=== PATIENT | female | born 1955 | race Caucasian/White ===

== ENCOUNTER 2016-03-27 12:31 | Outpatient (CLI) | payer BC | END 2016-03-27 12:32 | disposition home or self-care (01) | DX: Z12.2 Encounter for screening for malignant neoplasm of respiratory organs (principal); Z87.891 Personal history of nicotine dependence; J43.9 Emphysema, unspecified ==

== ENCOUNTER 2018-01-08 11:09 | Outpatient (CLI) | payer OTHER ==
--- NOTE | 2018-01-09 08:38 | Mammography Report ---
Reason: ANNUAL SCREENING Procedure Date: 01/08/2018 Accession Number: [id number] / [id number] Procedure: MADISYN - Screening Mammo w/Chandraaknt CPT Code: FULL RESULT: EXAM: Screening Mammo w/Chandrakant DATE: 01/08/2018 11:48 AM CLINICAL HISTORY: Routine screening. No personal or family history of breast cancer. TECHNIQUE: Bilateral CC and MLO views were obtained. COMPARISON: 01/07/2017, 12/26/2015. FINDINGS: The breasts demonstrate scattered fibroglandular densities bilaterally. There are no suspicious masses, calcifications or areas of distortion. IMPRESSION: Negative examination RECOMMENDATION: Routine annual screening unless otherwise clinically indicated. BI-RADS CATEGORY 1: Negative STANDARD QUALIFYING STATEMENTS: 1. This examination was not reviewed with the aid of Computer-Aided Detection (CAD). 2. A negative or benign imaging report should not preclude biopsy if clinically suspicious findings are present. 3. Dense breasts may obscure an underlying neoplasm. 4. This examination was reviewed with the aid of 3D breast imaging (tomosynthesis).
== END 2018-01-08 11:10 | disposition home or self-care (01) ==
LOC: DI 11:09
DX: Z12.31 Encounter for screening mammogram for malignant neoplasm of breast (principal)
CPT/HCPCS: 77063; 77067

== ENCOUNTER 2018-03-16 12:28 | Outpatient (CLI) | payer OTHER ==
--- NOTE | 2018-03-17 01:29 | XRAY Report ---
Reason: KNEE PAIN,LEFT Procedure Date: 03/16/2018 Accession Number: [id number] / [id number] Procedure: XR - Knee 3 View LT CPT Code: FULL RESULT: EXAM: LEFT KNEE RADIOGRAPHY EXAM DATE: 03/16/2018 01:05 PM. CLINICAL HISTORY: KNEE PAIN,LEFT. COMPARISON: None. TECHNIQUE: 3 views. FINDINGS: Bones: Normal. No fractures or bone lesions. Joints: Mild osteoarthritis. Small effusion. Soft Tissues: Normal. No soft tissue swelling. IMPRESSION: Mild osteoarthritis, with a small joint effusion. No evidence of acute fracture. RADIA
== END 2018-03-16 12:29 | disposition home or self-care (01) ==
LOC: DI 12:28
PROVIDERS: ATTEND Family Medicine
DX: M17.12 Unilateral primary osteoarthritis, left knee (principal)

== ENCOUNTER 2018-07-31 18:15 | Emergency (ER) | payer OTHER ==
--- NOTE | 2018-07-31 18:53 | ED Physician Documentation ---
PD HPI ABD PAIN - Stated complaint Stated Complaint: ABD PX - Chief complaint Chief Complaint: Abd Pain - History obtained from History obtained from: Patient - History of Present Illness Timing - onset: Yesterday Timing - duration: Days (1) Timing - details: Gradual onset Pain level now: 8 Quality: Other ("Kicked" in the stomach) Location: Periumbilical Associated symptoms: Nausea. No: Fever, Vomiting, Hematemesis, Diarrhea, Dysuria, Hematuria, Dizzy, Near syncope / syncope - Additional information Additional information: This is a 62-year-old woman who presents with her complaints that last night she had a gradual onset of abdominal pain feels like she got "kicked". She took some Tums without relief of her symptoms. She had some nausea but no vomiting or diarrhea she never had anything like this before. She says she was admitted to [facility] about 4 years ago was diagnosed with ischemic colitis but did not undergo any surgery and does have a history of diverticulitis about 7 years ago. She has not seen any blood in the stool has not been dark or tarry. She said no palpitations or felt lightheaded. No fever. She has been on a weight loss plan recently eating a lot of fruits and vegetables just a small amount of lean meats and cheese. Patient usually drinks alcohol about every other day but quit approximately a week ago. She is a daily marijuana user. She has not been drinking much today and has not been urinating much.She tells me she has had multiple colonoscopies in the past. Review of Systems Constitutional: denies: Fever, Chills Nose: denies: Congestion Throat: denies: Sore throat Cardiac: denies: Chest pain / pressure, Palpitations Respiratory: denies: Dyspnea, Cough GI: reports: Abdominal Pain, Nausea. denies: Vomiting, Diarrhea, Hematemesis, Bloody / black stool : denies: Dysuria, Frequency Skin: denies: Rash Neurologic: denies: Syncope, LOC PD PAST MEDICAL HISTORY - Past Medical History Past Medical History: Yes Cardiovascular: None Respiratory: None Endocrine/Autoimmune: None GI: None : None HEENT: None Psych: None Musculoskeletal: Osteoarthritis, Gout, Chronic back pain Derm: None - Past Surgical History General: Colonoscopy - Present Medications Home Medications: Ambulatory Orders Medication Instructions Recorded Confirmed Amox/Clav 875/125 [Augmentin] 2 each PO Q12H #40 tablet 07/31/18 Hydrocodone/Acetaminophen 1 - 2 each PO Q6H PRN #14 tablet 07/31/18 [Hydrocodon-Acetaminophen 5-325] Multivitamin [Multiple Vitamins] 07/31/18 - Allergies Allergies/Adverse Reactions: Allergies Allergy/AdvReac Type Severity Reaction Status Date / Time No Known Drug Allergies Allergy Verified 07/31/18 18:23 - Social History Does the pt smoke?: Yes Smoking Status: Current every day smoker Does the pt drink ETOH?: Yes Does the pt have substance abuse?: No - Immunizations Immunizations are current?: Yes PD ED PE NORMAL - Vitals Vital signs reviewed: Yes - General General: Alert and oriented X 3, No acute distress, Well developed/nourished - HEENT HEENT: Atraumatic, PERRL, EOMI, Moist mucous membranes, Pharynx benign - Neck Neck: No adenopathy - Cardiac Cardiac: RRR, No murmur - Respiratory Respiratory: No respiratory distress, Clear bilaterally - Abdomen Abdomen: Normal bowel sounds, Soft, Other (Diffuse abdominal tenderness with some mild guarding) - Back Back: No CVA TTP - Derm Derm: Normal color, Warm and dry, No rash - Extremities Extremities: No edema - Neuro Neuro: Alert and oriented X 3, No motor deficit, No sensory deficit, Normal speech - Psych Psych: Normal mood, Normal affect Results - Vitals Vitals: Vital Signs - 24 hr 07/31/18 07/31/18 07/31/18 18:20 19:47 20:16 Temperature 37.3 C 37.1 C Heart Rate 89 78 Respiratory 16 16 Rate Blood Pressure 137/73 H 130/75 O2 Saturation 97 97 07/31/18 07/31/18 21:49 23:18 Temperature 37.1 C Heart Rate 78 71 Respiratory 16 21 Rate Blood Pressure 122/73 114/68 O2 Saturation 100 96 Oxygen O2 Source Room air - EKG (time done) 1910 Rate: Rate (enter#) Rhythm: NSR Intervals: Normal NV QRS: Normal Ischemia: Normal ST segments Compare to prior EKG: Old EKG unavailable - Labs Labs: Laboratory Tests 07/31/18 07/31/18 07/31/18 18:30 19:20 19:20 WBC 14.1 H RBC 4.56 Hgb 14.5 Hct 42.4 MCV 93.0 MCH 31.9 H MCHC 34.3 RDW 13.4 Plt Count 255 MPV 8.5 Neut # (Auto) 10.4 H Lymph # (Auto) 2.4 Benzie # (Auto) 1.2 H Eos # (Auto) 0.0 Baso # (Auto) 0.0 Absolute Nucleated RBC 0.01 Nucleated RBC % 0.1 PT 11.7 INR 1.0 Sodium Potassium Chloride Carbon Dioxide Anion Gap BUN Creatinine Estimated GFR (MDRD) Glucose Lactic Acid Calcium Total Bilirubin AST ALT Alkaline Phosphatase Troponin I Total Protein Albumin Globulin Albumin/Globulin Ratio Lipase Urine Color YELLOW Urine Clarity CLEAR Urine pH 7.5 Ur Specific [place] <=1.005 Urine Protein NEGATIVE Urine Glucose (UA) NEGATIVE Urine Ketones NEGATIVE Urine Occult Blood SMALL H Urine Nitrite NEGATIVE Urine Bilirubin NEGATIVE Urine Urobilinogen 0.2 (NORMAL) Ur Leukocyte Esterase NEGATIVE Urine RBC 6-10 H Urine WBC 0-3 Ur Squamous Epith Cells RARE Squamous Urine Bacteria None Seen Ur Microscopic Review INDICATED Urine Culture Comments NOT INDICATED Ethyl Alcohol 07/31/18 07/31/18 07/31/18 19:20 19:20 19:20 WBC RBC Hgb Hct MCV MCH MCHC RDW Plt Count MPV Neut # (Auto) Lymph # (Auto) Benzie # (Auto) Eos # (Auto) Baso # (Auto) Absolute Nucleated RBC Nucleated RBC % PT INR Sodium 137 Potassium 3.6 Chloride 104 Carbon Dioxide 22 Anion Gap 11.0 BUN 10 Creatinine 0.8 Estimated GFR (MDRD) 73 L Glucose 106 H Lactic Acid 0.8 Calcium 9.1 Total Bilirubin 0.7 AST 19 ALT 20 Alkaline Phosphatase 56 Troponin I < 0.04 Total Protein 7.3 Albumin 4.1 Globulin 3.2 Albumin/Globulin Ratio 1.3 Lipase 32 Urine Color Urine Clarity Urine pH Ur Specific [place] Urine Protein Urine Glucose (UA) Urine Ketones Urine Occult Blood Urine Nitrite Urine Bilirubin Urine Urobilinogen Ur Leukocyte Esterase Urine RBC Urine WBC Ur Squamous Epith Cells Urine Bacteria Ur Microscopic Review Urine Culture Comments Ethyl Alcohol < 5.0 - Rads (name of study) CT scan abd Radiology: Prelim report reviewed, See rad report (Consistent with diverticulitis) PD MEDICAL DECISION MAKING - ED course Complexity details: reviewed results, re-evaluated patient, d/w patient, d/w family ED course: Is a 62-year-old woman with abdominal pain and history of diverticulitis. She has an elevated white blood cell count and diverticulitis noted on her CT scan. She was treated with Zosyn IV. She received IV pain medications. She is feeling much better. She is discharged home on Augmentin 875 2 tablets twice daily for 10 days as well as prescription for some hydrocodone and instructed to use ibuprofen [id number]. Datto diet for the next several days. Follow- up if she is not improving and recheck with her primary care provider. Departure - Departure Disposition: 01 Home, Self Care Clinical Impression: Diverticulitis Condition: Good Instructions: ED Diverticulitis Follow-Up: Tyrese Padilla DO [Primary Care Provider] - Prescriptions: Amox/Clav 875/125 [Augmentin] 2 each PO Q12H #40 tablet Hydrocodone/Acetaminophen [Hydrocodon-Acetaminophen 5-325] 1 - 2 each PO Q6H PRN #14 tablet PRN Reason: pain Comments: Take the Augmentin 2 tabs twice a day for 10 days. I would take probiotics while you are on the antibiotic and for 2 weeks after. Take ibuprofen 3 to 4 tablets every 8 hours with food for the next 2 to 3 days. I have provided a prescription for a few hydrocodone tablets if needed for additional pain control but do not drive or operate machinery if you are taking that medication. Eat a bland diet for the next 24 to 48 hours and follow-up with your primary care provider for reevaluation next week to ensure that you are improving. If your symptoms are worsening with increasing pain, you are vomiting and cannot keep anything down to develop a fever that is not resolved with ibuprofen or hy drocodone or Tylenol you should return for reevaluation. Discharge Date/Time: 07/31/18 23:27
[2018-07-31] MEDS ORDERED: SODIUM CHLORIDE 0.9% 1,000 ML IV ONE (19:06)
[2018-07-31] MEDS ORDERED: FAMOTIDINE 20 MG/2 ML VIAL IVP STA (19:06)
[2018-07-31] MEDS ORDERED: ONDANSETRON 4 MG/2 ML VIAL IVP STA (19:07)
[2018-07-31] MEDS ORDERED: ONDANSETRON 4 MG/2 ML VIAL ONE (19:17)
[2018-07-31] MEDS ORDERED: IOVERSOL 320 100 ML VIAL IVP ONE ×2 (19:19→20:08)
[2018-07-31 19:29] LABS: BASOPHILS % (AUTO) 0.3 %; EOSINOPHILS % (AUTO) 0.2 %; HGB - HEMOGLOBIN 14.5 g/dL (12.0-16.0); LYMPHOCYTES # (AUTO) 2.4 10^3/uL (1.5-3.5); LYMPHOCYTES % (AUTO) 17.2 %; MEAN CORPUSCULAR HEMOGLOBIN 31.9 pg (27.0-31.0); MEAN CORPUSCULAR HGB CONC 34.3 g/dL (32.0-36.0); MEAN PLATELET VOLUME 8.5 fL (7.9-10.8); MONOCYTES # (AUTO) 1.2 10^3/uL (0.0-1.0); MONOCYTES % (AUTO) 8.8 %; NEUTROPHILS # (AUTO) 10.4 10^3/uL (1.5-6.6); NEUTROPHILS % (AUTO) 73.5 %; PLT - PLATELET COUNT 255 10^3/uL (130-450); RED BLOOD COUNT 4.56 10^6/uL (4.20-5.40); RED CELL DISTRIBUTION WIDTH 13.4 % (12.0-15.0); WHITE BLOOD COUNT 14.1 x10^3/uL (4.8-10.8)
[2018-07-31 19:29] LABS: BILIRUBIN,URINE NEGATIVE (NEGATIVE); GLUCOSE, URINE (UA) NEGATIVE (NEGATIVE); KETONES,URINE (UA) NEGATIVE (NEGATIVE); LEUKOCYTE ESTERASE, URINE NEGATIVE (NEGATIVE); NITRITE,URINE NEGATIVE (NEGATIVE); OCCULT BLOOD,URINE SMALL (NEGATIVE); PH,URINE 7.5 PH (5.0-7.5); PROTEIN,URINE NEGATIVE (NEGATIVE); UROBILINOGEN,URINE 0.2 (NORMAL) E.U./dL (NORMAL)
[2018-07-31 19:35] LABS: PT - PROTHROMBIN TIME 11.7 secs (9.9-12.6)
[2018-07-31 19:40] LABS: ALBUMIN 4.1 g/dL (3.2-5.5); ALBUMIN/GLOBULIN RATIO 1.3 (1.0-2.2); ALKALINE PHOSPHATASE 56 IU/L (42-121); ALT ALANINE AMINOTRANSFERASE 20 IU/L (10-60); AST ASPARTATE AMINOTRANSFERASE 19 IU/L (10-42); BILIRUBIN,TOTAL 0.7 mg/dL (0.2-1.0); BUN - BLOOD UREA NITROGEN 10 mg/dL (6-20); CALCIUM 9.1 mg/dL (8.5-10.3); CARBON DIOXIDE - CO2 22 mmol/L (21-32); CHLORIDE 104 mmol/L (101-111); CREATININE 0.8 mg/dL (0.4-1.0); GFR - MDRD 73 (>89); GLUCOSE 106 mg/dL (70-100); LIPASE 32 U/L (22-51); SODIUM 137 mmol/L (135-145); TOTAL PROTEIN 7.3 g/dL (6.7-8.2)
[2018-07-31 19:40] LABS: CLARITY,URINE CLEAR (CLEAR)
[2018-07-31 19:47] LABS: BACTERIA,URINE None Seen /HPF (None Seen); SQUAMOUS EPITHELIAL CELL,UR RARE Squamous (<= Few)
--- NOTE | 2018-07-31 20:27 | CT Report ---
Reason: abd pain; h/o ischemic colitis and diverticulits Procedure Date: 07/31/2018 Accession Number: [id number] / [id number] Procedure: CT - Abdomen/Pelvis W CPT Code: FULL RESULT: EXAM: CT ABDOMEN AND PELVIS EXAM DATE: 07/31/2018 07:00 PM. CLINICAL HISTORY: Abdominal pain COMPARISONS: ABDOMEN/PELVIS W/ 04/14/2015 6:08 PM. TECHNIQUE: Routine helical CT imaging was performed through the abdomen and pelvis. IV contrast: 100 cc Optiray 320. Enteric contrast: No. Reconstructions: Coronal and sagittal. In accordance with CT protocol optimization, one or more of the following dose reduction techniques were utilized for this exam: automated exposure control, adjustment of mA and/or KV based on patient size, or use of iterative reconstructive technique. FINDINGS: Lung Bases: Unremarkable. Liver: Normal. No masses. Gallbladder/Bile Ducts: Unremarkable. Spleen: Normal. Pancreas: Normal. Adrenal Glands: Normal. Kidneys: Normal. No masses or hydronephrosis. Peritoneal Cavity/Bowel: Stomach and small bowel demonstrate no acute abnormalities. There is colonic diverticulosis. There is low left colon wall thickening with adjacent fat stranding. No evidence of intraperitoneal free air. No drainable pericolonic abscess. The appendix is well visualized and normal. No enlarged mesenteric or retroperitoneal lymph nodes. Pelvic Organs: Fibroid uterus. The urinary bladder is within normal limits. No significant adnexal abnormality is are seen. Vasculature: No acute vascular abnormalities. Bones: There is multilevel degenerative disease. Other: None. IMPRESSION: 1. There is moderate low left colon diverticulitis. There is no evidence of perforation or pericolonic abscess. 2. Fibroid uterus. RADIA
[2018-07-31] MEDS ORDERED: PIPERACILLIN/TAZOBACTAM 3.375 GM in SODIUM CHLORIDE 0.9% MINIBAG 100 ML IV STA (21:49)
[2018-07-31] MEDS ORDERED: KETOROLAC 30 MG/ML VIAL IVP STA (21:50)
[2018-07-31 23:19] VITALS: BP 114/68
== END 2018-07-31 23:27 | disposition home or self-care (01) ==
LOC: ED 18:15
DX: K57.32 Diverticulitis of large intestine without perforation or abscess without bleeding (principal); D25.9 Leiomyoma of uterus, unspecified; F17.200 Nicotine dependence, unspecified, uncomplicated
CPT/HCPCS: 36415; 74177; 80053; 80320; 81001; 83605; 83690; 84484; 85025; 85610; 93005; 96361; 96365; 96375; 99284; Q9967; 81003; 87086

== ENCOUNTER 2018-10-19 06:56 | Outpatient (CLI) | payer OTHER ==
[2018-10-19 10:48] LABS: BASOPHILS % (AUTO) 0.5 %; EOSINOPHILS # (AUTO) 0.1 10^3/uL (0.0-0.7); EOSINOPHILS % (AUTO) 1.7 %; HGB - HEMOGLOBIN 14.7 g/dL (12.0-16.0); MEAN CORPUSCULAR HEMOGLOBIN 31.2 pg (27.0-31.0); MEAN CORPUSCULAR HGB CONC 32.6 g/dL (32.0-36.0); MEAN CORPUSCULAR VOLUME 95.8 fL (81.0-99.0); MEAN PLATELET VOLUME 11.1 fL (7.9-10.8); MONOCYTES # (AUTO) 0.7 10^3/uL (0.0-1.0); MONOCYTES % (AUTO) 8.9 %; NEUTROPHILS # (AUTO) 4.3 10^3/uL (1.5-6.6); NEUTROPHILS % (AUTO) 52.7 %; PLT - PLATELET COUNT 313 10^3/uL (130-450); RED BLOOD COUNT 4.71 10^6/uL (4.20-5.40); RED CELL DISTRIBUTION WIDTH 13.1 % (12.0-15.0); WHITE BLOOD COUNT 8.2 x10^3/uL (4.8-10.8)
[2018-10-19 11:21] LABS: ALBUMIN 4.3 g/dL (3.2-5.5); ALBUMIN/GLOBULIN RATIO 1.4 (1.0-2.2); ALKALINE PHOSPHATASE 57 IU/L (42-121); ALT ALANINE AMINOTRANSFERASE 18 IU/L (10-60); AST ASPARTATE AMINOTRANSFERASE 19 IU/L (10-42); BILIRUBIN,TOTAL 0.7 mg/dL (0.2-1.0); BUN - BLOOD UREA NITROGEN 11 mg/dL (6-20); CALCIUM 9.8 mg/dL (8.5-10.3); CARBON DIOXIDE - CO2 24 mmol/L (21-32); CHLORIDE 106 mmol/L (101-111); CHOL/HDL RATIO 3.6 (<4.4); CHOLESTEROL 190 mg/dL; CREATININE 0.8 mg/dL (0.4-1.0); GFR - MDRD 73 (>89); GLUCOSE 95 mg/dL (70-100); HDL CHOLESTEROL 53 mg/dL; LDL CHOLESTEROL,CALCULATED 121 mg/dL; LDL/HDL RATIO 2.3 (<4.4); SODIUM 141 mmol/L (135-145); TOTAL PROTEIN 7.3 g/dL (6.7-8.2); VLDL CHOLESTEROL 16 mg/dL
== END 2018-10-19 06:57 | disposition home or self-care (01) ==
LOC: LAB.S 06:56
PROVIDERS: ATTEND Family Medicine
DX: Z00.00 Encounter for general adult medical examination without abnormal findings (principal)
CPT/HCPCS: 36415; 80053; 80061; 83721; 84443; 85025

== ENCOUNTER 2018-12-04 12:50 | Outpatient (CLI) | payer OTHER ==
--- NOTE | 2018-12-04 14:33 | CT Report ---
Reason: NICOTINE ABUSE/DEPENDENCE Procedure Date: 12/04/2018 Accession Number: [id number] / [id number] Procedure: CT - Low Dose Lung Cancer Screen CPT Code: FULL RESULT: EXAM CT LUNG SCREEN EXAM DATE: 12/04/2018 01:31 PM. HISTORY: 63-year-old patient with [id number] smoking history. Currently smoking: No. Years since quittin. COMPARISON: CHEST SCREEN LOW-DOSE W/O 03/27/2016 1:24 PM. TECHNIQUE: CT examination of the entire thorax without contrast was performed using low-dose technique. Thin section coronal, axial, sagittal and MIP axial images were obtained. In accordance with CT protocol optimization, one or more of the following dose reduction techniques were utilized for this exam: automated exposure control, adjustment of mA and/or KV based on patient size, or use of iterative reconstructive technique. FINDINGS: Nodules: Right upper lobe: None. Right middle lobe: None. Right lower lobe: None. Left upper lobe: None. Left lower lobe: None. Emphysema: None. Pleura: Unremarkable. Aorta: Unremarkable. Mediastinum: Unremarkable. Coronary calcifications: None. Other pulmonary findings: None. Other extrapulmonary findings: There is an approximate 5 x 2 cm diameter homogeneous elliptical intramuscular lipoma in the posterior shoulder muscles of no clinical significance. IMPRESSION: Lung-RADS ASSESSMENT CATEGORY: 1 - Negative. Probability of malignancy: Less than 1%. RECOMMENDATION: Recommended follow up based on ACR Lung-RADS Version 1.1 Guidelines. Recommend annual low-dose CT screening. RADIA
== END 2018-12-04 12:51 | disposition home or self-care (01) ==
LOC: DI 12:50
PROVIDERS: ATTEND Family Medicine
DX: Z12.2 Encounter for screening for malignant neoplasm of respiratory organs (principal); Z87.891 Personal history of nicotine dependence

== ENCOUNTER 2019-01-22 12:53 | Outpatient (CLI) | payer OTHER ==
--- NOTE | 2019-01-25 12:33 | Mammography Report ---
Reason: SCREENING MAMMO Procedure Date: 01/22/2019 Accession Number: [id number] / [id number] Procedure: MGS - Screening Mammo Dig Bilat CPT Code: Final Report FULL RESULT: EXAM: Screening Mammo Dig Bilat DATE: 01/22/2019 1:09 PM CLINICAL HISTORY: The patient is an asymptomatic 63-year-old female. No personal nor family history of breast cancer. TECHNIQUE: (B) - Bilateral CC and MLO views were obtained. COMPARISON: 01/18/2018, 01/07/2017 and 12/26/2015 PARENCHYMAL PATTERN: (A) - The breasts demonstrate scattered fibroglandular densities bilaterally. FINDINGS: There are no suspicious masses, calcifications, or areas of distortion. IMPRESSION: Negative examination. BI-RADS category 1. RECOMMENDATION: (ANNUAL) - Recommend routine annual screening mammography. BI-RADS CATEGORY: STANDARD QUALIFYING STATEMENTS: 1. This examination was not reviewed with the aid of Computer-Aided Detection (CAD). 2. A negative or benign imaging report should not preclude biopsy if clinically suspicious findings are present. 3. Dense breasts may obscure an underlying neoplasm.
== END 2019-01-22 12:54 | disposition home or self-care (01) ==
LOC: DI.S 12:53
DX: Z12.31 Encounter for screening mammogram for malignant neoplasm of breast (principal)
CPT/HCPCS: 77067

== ENCOUNTER 2020-03-22 18:44 | Outpatient (CLI) | payer OTHER | END 2020-03-22 18:45 | disposition EMS.NT | LOC: EMS 18:44 | PROVIDERS: ATTEND Surgery | DX: R10.10 Upper abdominal pain, unspecified (principal) ==

== ENCOUNTER 2020-05-23 08:00 | Outpatient (CLI) | payer OTHER ==
[2020-05-23 12:04] LABS: BASOPHILS # (AUTO) 0.1 10^3/uL (0.0-0.1); BASOPHILS % (AUTO) 0.7 %; EOSINOPHILS # (AUTO) 0.1 10^3/uL (0.0-0.7); EOSINOPHILS % (AUTO) 1.4 %; HCT - HEMATOCRIT 43.7 % (37.0-47.0); HGB - HEMOGLOBIN 14.6 g/dL (12.0-16.0); LYMPHOCYTES # (AUTO) 2.6 10^3/uL (1.5-3.5); MEAN CORPUSCULAR HEMOGLOBIN 32.2 pg (27.0-31.0); MEAN CORPUSCULAR HGB CONC 33.4 g/dL (32.0-36.0); MEAN CORPUSCULAR VOLUME 96.5 fL (81.0-99.0); MEAN PLATELET VOLUME 10.7 fL (7.9-10.8); MONOCYTES # (AUTO) 0.7 10^3/uL (0.0-1.0); MONOCYTES % (AUTO) 10.5 %; NEUTROPHILS # (AUTO) 3.6 10^3/uL (1.5-6.6); NEUTROPHILS % (AUTO) 50.1 %; PLT - PLATELET COUNT 283 10^3/uL (130-450); RED BLOOD COUNT 4.53 10^6/uL (4.20-5.40); WHITE BLOOD COUNT 7.1 x10^3/uL (4.8-10.8)
[2020-05-23 12:34] LABS: ALBUMIN 4.6 g/dL (3.2-5.5); ALBUMIN/GLOBULIN RATIO 1.5 (1.0-2.2); ALKALINE PHOSPHATASE 59 IU/L (42-121); ALT ALANINE AMINOTRANSFERASE 15 IU/L (10-60); AST ASPARTATE AMINOTRANSFERASE 19 IU/L (10-42); BILIRUBIN,TOTAL 0.5 mg/dL (0.2-1.0); BUN - BLOOD UREA NITROGEN 12 mg/dL (6-20); CALCIUM 10.1 mg/dL (8.5-10.3); CARBON DIOXIDE - CO2 24 mmol/L (21-32); CHLORIDE 106 mmol/L (101-111); CHOLESTEROL 218 mg/dL; CREATININE 0.8 mg/dL (0.4-1.0); GFR - MDRD 72 (>89); GLUCOSE 95 mg/dL (70-100); HDL CHOLESTEROL 73 mg/dL; LDL CHOLESTEROL,CALCULATED 120 mg/dL; LDL/HDL RATIO 1.6 (<4.4); POTASSIUM 4.3 mmol/L (3.5-5.0); SODIUM 140 mmol/L (135-145); TOTAL PROTEIN 7.6 g/dL (6.7-8.2); TRIGLYCERIDES 127 mg/dL; VLDL CHOLESTEROL 25 mg/dL
[2020-05-23 12:35] LABS: THYROID STIMULATING HORMONE 1.37 uIU/mL (0.34-5.60)
== END 2020-05-23 23:59 | disposition home or self-care (01) ==
LOC: LAB.WCP 08:00
PROVIDERS: ATTEND Family Medicine
DX: R00.2 Palpitations (principal); I10 Essential (primary) hypertension
CPT/HCPCS: 36415; 80053; 80061; 83721; 83735; 84443; 85025

== ENCOUNTER 2020-06-27 07:49 | Outpatient (CLI) | payer OTHER ==
--- NOTE | 2020-06-27 10:05 | CT Report ---
PROCEDURE: Low Dose Lung Cancer Screen INDICATIONS: TOBACCO USE TECHNIQUE: Noncontrast low-dose 5 mm thick sections acquired from the pulmonary apices to the posterior costophr enic angles. 7 mm thick coronal and sagittal MIP reformats were then acquired. For radiation dose r eduction, the following was used: automated exposure control, adjustment of mA and/or kV according t o patient size. COMPARISON: None. FINDINGS: CHEST: Lungs: Diffuse peribronchial cuffing suggestive of nonspecific bronchitis and/or reactive airways dis ease. Scattered subsegmental scarring/atelectasis. No acute consolidation. Pleura: No pleural effusion or pneumothorax. Heart: Normal Lymph nodes: Normal Thyroid: Heterogeneous enlargement of the right lobe. Aorta: Normal Pulmonary arteries: Normal Esophagus: Normal Bones: Diffuse spondolytic changes and facet arthropathy. No compression fracture. Upper abdomen: Normal IMPRESSION: No suspicious pulmonary nodules. Lung RADS 1. Recommend follow-up screening lung CT in 12 months. Scattered subsegmental scarring/atelectasis. No acute consolidation. Ill-defined heterogeneous enlargement of the right thyroid lobe. This can be further assessed with de dicated ultrasound as clinically necessary. Reviewed by: Clif Hamilton MD on 06/27/2020 10:04 AM PDT Approved by: Clif Hamilton MD on 06/27/2020 10:04 AM PDT Station ID: [id number]
--- NOTE | 2020-06-27 12:47 | XRAY Report ---
PROCEDURE: Knee 4 View LT INDICATIONS: LEFT KNEE PAIN TECHNIQUE: 4 views of the left knee(s) were acquired. COMPARISON: Knee x-ray 03/16/2018 FINDINGS: Bones: No fractures or dislocations. No suspicious bony lesions. Moderate medial and patellofemora l compartment narrowing are present. Small periarticular osteophytes are present. No erosions. Overal l appearance is stable compared to prior exam. Soft tissues: Unremarkable joint effusion. No suspicious soft tissue calcifications. IMPRESSION: 1. Stable appearance of medial and patellofemoral osteoarthritic change. Reviewed by: Rachel Gurrola MD on 06/27/2020 11:46 AM RADHA Approved by: Rachel Gurrola MD on 06/27/2020 11:46 AM RADHA Station ID: [id number]
--- NOTE | 2020-06-27 12:49 | XRAY Report ---
PROCEDURE: Shoulder 2 View RT INDICATIONS: RIGHT SHOULDER PAIN TECHNIQUE: 2 views of the shoulder were acquired. COMPARISON: None. FINDINGS: Bones: No fractures or dislocations. No suspicious bony lesions. Visualized ribs appear intact. M oderate acromioclavicular degenerative narrowing. Soft tissues: No suspicious soft tissue calcifications. IMPRESSION: Moderate acromioclavicular degenerative narrowing. Reviewed by: Rachel Gurrola MD on 06/27/2020 11:47 AM RADHA Approved by: Rachel Gurrola MD on 06/27/2020 11:47 AM RADHA Station ID: [id number]
== END 2020-06-27 07:50 | disposition home or self-care (01) ==
LOC: DI 07:49
PROVIDERS: ATTEND Family Medicine
DX: Z12.2 Encounter for screening for malignant neoplasm of respiratory organs (principal); J98.11 Atelectasis; M17.12 Unilateral primary osteoarthritis, left knee; M19.011 Primary osteoarthritis, right shoulder; I49.3 Ventricular premature depolarization; I51.7 Cardiomegaly; I87.8 Other specified disorders of veins; F17.210 Nicotine dependence, cigarettes, uncomplicated
CPT/HCPCS: 93306

== ENCOUNTER 2020-11-19 12:16 | Outpatient (CLI) | payer MEDICARE ==
--- NOTE | 2020-11-20 10:20 | Mammography Report ---
BILATERAL DIGITAL SCREENING MAMMOGRAM 3D/2D: 11/19/2020 CLINICAL: Routine screening. Comparison is made to exams dated: 01/22/2019 mammogram, 01/08/2018 mammogram, 01/07/2017 mammogram, a nd 12/26/2015 mammogram - [facility]. There are scattered fibroglandular elements in both breasts. There is a possible developing 0.5 cm oval equal density asymmetry in the left breast posterior depth superior region seen on the mediolateral oblique view only. No other significant masses, calcifications, or other findings are seen in either breast. IMPRESSION: INCOMPLETE: NEEDS ADDITIONAL IMAGING EVALUATION The possible developing 0.5 cm oval equal density asymmetry in the left breast is indeterminate. Add itional views with possible ultrasound are recommended. This exam was interpreted at Station ID: [id number]. NOTE: For mammograms, a report in lay terms will be sent to the patient. Approximately 15% of breast malignancies will not be visualized mammographically. In the management of a palpable breast mass, a negative mammogram must not discourage biopsy of a clinically suspicious lesion. Electronically Signed By: Fransisco Abbott M.D. aty/:11/20/2020 08:54:18 ACR BI-RADS Category 0: Incomplete 3340F PARENCHYMAL PATTERN: (A) - The breast(s) demonstrate(s) scattered fibroglandular densities. BI-RADS CATEGORY: (0) - 0 Mammo and [place] [id number] Immediate follow-up LATERALITY: (L)
== END 2020-11-19 12:17 | disposition home or self-care (01) ==
LOC: DI.S 12:16
DX: Z12.31 Encounter for screening mammogram for malignant neoplasm of breast (principal); R92.8 Other abnormal and inconclusive findings on diagnostic imaging of breast

== ENCOUNTER 2020-11-20 14:41 | Outpatient (CLI) | payer MEDICARE ==
--- NOTE | 2020-11-20 16:35 | Ultrasound Report ---
PROCEDURE: Head or Neck Soft Tissue INDICATIONS: THYROID N0DULE TECHNIQUE: Real-time scanning was performed of the thyroid gland, with image documentation. COMPARISON: None FINDINGS: Right: Thyroid lobe measures 4.5 x 2.3 x 2.2 cm, and is homogeneous in echotexture. Left: Thyroid lobe measures 3.8 x 1.3 x 1.2 cm, and is homogenous in echotexture. Isthmus: 0.2 cm thick. Nodule number: One Location: Right superior/mid Size: 2.7 x 2.1 x 2 cm. Composition: Prominently solid Echogenicity: Hypoechoic Shape: wider than tall. Margins: Lobulated Echogenic foci: Macrocalcification Total points: 7 ACR TI-RADS category: TR 5, highly suspicious Subcentimeter thyroid nodule on the left measuring 0.4 cm. Not suspicious. IMPRESSION: Right superior/mid thyroid nodule measuring 2.7 cm. TR 5, highly suspicious. Recommend FNA. ACR TI-RADS definitions and recommendations: TI-RADS 1 (benign): 0 points. FNA not needed. TI-RADS 2 (not suspicious): 2 points. FNA not needed. TI-RADS 3 (mildly suspicious): 3 points. ? FNA if 2.5 cm or larger, follow up if 1.5 cm or larger (at 1, 3, and 5 years). TI-RADS 4 (moderately suspicious): 4-6 points. ? FNA if 1.5 cm or larger, follow up if 1 cm or larger (at 1, 2, 3, and 5 years). TI-RADS 5 (highly suspicious): 7 points or more. ? FNA if 1 cm or larger, follow up if 0.5 cm or larger (every year for 5 years). Reviewed by: Pacheco Hernandez MD on 11/20/2020 4:34 PM PDT Approved by: Pacheco Hernandez MD on 11/20/2020 4:34 PM PDT Station ID: [id number]
== END 2020-11-20 14:42 | disposition home or self-care (01) ==
LOC: DI 14:41
PROVIDERS: ATTEND Family Medicine
DX: E04.1 Nontoxic single thyroid nodule (principal)

== ENCOUNTER 2020-11-30 13:40 | Outpatient (CLI) | payer MEDICARE ==
[~2020-11-30 13:40] MED LIST: BUFFERED LIDOCAINE 10 ML SYRINGE ONE
[2020-11-30] MEDS ORDERED: BUFFERED LIDOCAINE 10 ML SYRINGE IU ONE (17:20)
--- NOTE | 2020-12-01 14:46 | Ultrasound Report ---
PROCEDURE: FNA Bx w/US Gnd 1st les INDICATIONS: THYROID NODULE TECHNIQUE: The indications, alternatives, benefits, risks, and complications of the procedure were explained to the patient. Written informed consent was obtained and placed in the chart. The area of interest wa s examined sonographically and a site was chosen for ultrasound guided percutaneous sampling. The sk in was prepared and draped in the usual fashion, and anesthetized with 1% lidocaine infiltrated from the skin down to the lesion. Multiple passes were then performed, with contents emptied into an appr [facility] pathology specimen container. A bandage was applied to the area of access at completion of t he study. COMPARISON: None. FINDINGS: Location(s) of lesion(s) sampled: Right mid thyroid lobe [place]: 25 gauge hypodermic needles. Number of passes: 7 Medications: 1% lidocaine for local anaesthesia. Complications: None. IMPRESSION: Successful ultrasound-guided right thyroid fine needle aspiration, with cytology results pending. Reviewed by: Rachel Gurrola MD on 12/01/2020 2:44 PM PDT Approved by: Rachel Gurrola MD on 12/01/2020 2:44 PM PDT Station ID: [id number]
== END 2020-11-30 13:41 | disposition home or self-care (01) ==
LOC: DI 13:40
PROVIDERS: ATTEND Family Medicine
DX: E04.1 Nontoxic single thyroid nodule (principal)
CPT/HCPCS: 10005

== ENCOUNTER 2020-12-04 08:00 | Outpatient (CLI) | payer MEDICARE | END 2020-12-04 23:59 | disposition home or self-care (01) | LOC: LAB.S 08:00 | PROVIDERS: ATTEND Physician Assistant Medical | DX: R05.9 Cough, unspecified (principal); Z20.822 Contact with and (suspected) exposure to COVID-19 ==

== ENCOUNTER 2020-12-18 09:43 | Outpatient (CLI) | payer MEDICARE ==
--- NOTE | 2020-12-19 10:22 | Mammography Report ---
UNILATERAL LEFT DIGITAL DIAGNOSTIC MAMMOGRAM 3D/2D: 12/18/2020 CLINICAL: Patient returns today to evaluate an asymmetry in the left breast. Comparison is made to exams dated: 11/19/2020 mammogram, 01/22/2019 mammogram, 01/08/2018 mammogram, 03/09/2016 mammogram, and 12/26/2015 mammogram - [facility]. There are scattered fib roglandular elements in left breast. There is a possible benign asymmetry in the left breast posterior depth superior region seen on the m ediolateral oblique view only. This is not seen in additional views. No other significant masses or calcifications are seen in the breast. IMPRESSION: NEGATIVE There is no mammographic evidence of malignancy. A 1 year screening mammogram is recommended. Exam findings were conveyed to the patient. This exam was interpreted at Station ID: [id number]. NOTE: For mammograms, a report in lay terms will be sent to the patient. Approximately 15% of breast malignancies will not be visualized mammographically. In the management of a palpable breast mass, a negative mammogram must not discourage biopsy of a clinically suspicious lesion. Electronically Signed By: Pacheco Hernandez M.D. slc/:12/18/2020 10:23:18 ACR BI-RADS Category 1: Negative 3341F PARENCHYMAL PATTERN: (A) - The breast(s) demonstrate(s) scattered fibroglandular densities. BI-RADS CATEGORY: (1) - 1 RECOMMENDATION: (ANNUAL) - Recommend routine annual screening mammography. [id number] 1 year screening LATERALITY: (B)
== END 2020-12-18 09:44 | disposition home or self-care (01) ==
LOC: DI 09:43
PROVIDERS: ATTEND Family Medicine
DX: R92.8 Other abnormal and inconclusive findings on diagnostic imaging of breast (principal)

== ENCOUNTER 2021-05-01 12:55 | Outpatient (CLI) | payer MEDICARE ==
--- NOTE | 2021-05-01 16:43 | CT Report ---
PROCEDURE: Low Dose Lung Cancer Screen INDICATIONS: HIST OF TOBACCO USE TECHNIQUE: Noncontrast low-dose images were acquired from the pulmonary apices to the posterior costophrenic ang les. Multiplanar MIP reformats were then acquired. For radiation dose reduction, the following was used: automated exposure control, adjustment of mA and/or kV according to patient size. COMPARISON: None. FINDINGS: Image quality: Excellent. Lungs and pleura: The lungs are clear. No pleural effusion or pneumothorax. No pulmonary nodules. No acute airspace opacities. Mediastinum: Heart size is normal. No pericardial effusion. No mediastinal adenopathy by size crit eria. Thoracic aorta and central pulmonary arteries are normal in size. Scattered atheromatous calci fications are present at the thoracic aortic arch. Esophagus is normal in caliber. No hiatal hernia. Bones and chest wall: No suspicious bony lesions. No vertebral body compression fractures. No axil lisa or supraclavicular adenopathy by size criteria. The thyroid is normal in size and there are no incidental findings. Abdomen: Visualized upper abdomen solid organs and bowel loops appear normal in the absence of contr ast. IMPRESSION: Suspicious findings. No pulmonary nodules. LUNG-RADS 1. Annual CT surveillance recommended. Reviewed by: Kenia Daniel MD on 05/01/2021 4:41 PM PST Approved by: Kenia Daniel MD on 05/01/2021 4:41 PM PST Station ID: [id number]
== END 2021-05-01 12:56 | disposition home or self-care (01) ==
LOC: DI 12:55
PROVIDERS: ATTEND Family Medicine
DX: Z12.2 Encounter for screening for malignant neoplasm of respiratory organs (principal); Z87.891 Personal history of nicotine dependence

== ENCOUNTER 2021-06-29 08:00 | Outpatient (CLI) | payer MEDICARE | END 2021-06-29 08:01 | disposition home or self-care (01) | LOC: LAB.S 08:00 | PROVIDERS: ATTEND Physician Assistant Medical | DX: R09.89 Other specified symptoms and signs involving the circulatory and respiratory systems (principal); Z20.822 Contact with and (suspected) exposure to COVID-19 ==

== ENCOUNTER 2021-06-29 08:00 | Outpatient (CLI) | payer MEDICARE ==
--- NOTE | 2021-06-29 16:37 | XRAY Report ---
PROCEDURE: Chest 2 View X-Ray INDICATIONS: Chest congestion, shortness of breath TECHNIQUE: 2 view(s) of the chest. COMPARISON: None. FINDINGS: Surgical changes and devices: None. Lungs and pleura: No pleural effusions or pneumothorax. Lungs are clear. Mediastinum: Mediastinal contours are normal. Heart size is normal. Bones and chest wall: No suspicious bony abnormalities. Soft tissues appear unremarkable. IMPRESSION: No acute cardiopulmonary process demonstrated radiographically. Reviewed by: Aram Lemon MD on 06/29/2021 4:35 PM PDT Approved by: Aram Lemon MD on 06/29/2021 4:35 PM PDT Station ID: [id number]
== END 2021-06-29 23:59 | disposition home or self-care (01) ==
LOC: DI.S 08:00
PROVIDERS: ATTEND Physician Assistant Medical
DX: R06.02 Shortness of breath (principal); R09.89 Other specified symptoms and signs involving the circulatory and respiratory systems

== ENCOUNTER 2021-11-21 12:50 | Outpatient (CLI) | payer MEDICARE ==
--- NOTE | 2021-11-22 12:13 | Mammography Report ---
BILATERAL DIGITAL SCREENING MAMMOGRAM 3D/2D: 11/21/2021 CLINICAL: Routine screening. Comparison is made to exams dated: 11/19/2020 mammogram, 01/22/2019 mammogram, 01/08/2018 mammogram, a nd 01/07/2017 mammogram - [facility]. There are scattered areas of fibroglandular density in both breasts (category b / 25%-50% glandular t issue). No significant masses, calcifications, or other findings are seen in either breast. There has been no significant interval change. IMPRESSION: NEGATIVE There is no mammographic evidence of malignancy. A 1 year screening mammogram is recommended. Based on the Tyrer Cuzick model (a risk assessment model) the patients lifetime risk is 6.9% and her 10 year risk is 3.5%. According to the ACR, ACS, and NCCN guidelines, an annual breast MRI exam benjamín g with mammogram is recommended if the patients lifetime risk is 20% or greater. This exam was interpreted at Station ID: [id number]. NOTE: For mammograms, a report in lay terms will be sent to the patient. Approximately 15% of breast malignancies will not be visualized mammographically. In the management of a palpable breast mass, a negative mammogram must not discourage biopsy of a clinically suspicious lesion. Electronically Signed By: Fransisco miller/sekou:11/21/2021 20:30:39 ACR BI-RADS Category 1: Negative 3341F PARENCHYMAL PATTERN: (A) - The breast(s) demonstrate(s) scattered fibroglandular densities. BI-RADS CATEGORY: (1) - 1 RECOMMENDATION: (ANNUAL) - Recommend routine annual screening mammography. [id number] 1 year screening LATERALITY: (B)
== END 2021-11-21 12:51 | disposition home or self-care (01) ==
LOC: DI.S 12:50
DX: Z12.31 Encounter for screening mammogram for malignant neoplasm of breast (principal)

== ENCOUNTER 2022-02-04 07:19 | Outpatient (CLI) | payer MEDICARE ==
[2022-02-04 14:57] LABS: BASOPHILS # (AUTO) 0.1 10^3/uL (0.0-0.1); BASOPHILS % (AUTO) 0.6 %; EOSINOPHILS # (AUTO) 0.2 10^3/uL (0.0-0.7); EOSINOPHILS % (AUTO) 1.9 %; HCT - HEMATOCRIT 45.5 % (37.0-47.0); HGB - HEMOGLOBIN 14.8 g/dL (12.0-16.0); LYMPHOCYTES # (AUTO) 2.8 10^3/uL (1.5-3.5); LYMPHOCYTES % (AUTO) 35.4 %; MEAN CORPUSCULAR HGB CONC 32.5 g/dL (32.0-36.0); MEAN CORPUSCULAR VOLUME 95.4 fL (81.0-99.0); MEAN PLATELET VOLUME 10.6 fL (7.9-10.8); MONOCYTES # (AUTO) 0.7 10^3/uL (0.0-1.0); MONOCYTES % (AUTO) 9.1 %; NEUTROPHILS # (AUTO) 4.2 10^3/uL (1.5-6.6); NEUTROPHILS % (AUTO) 52.7 %; PLT - PLATELET COUNT 303 10^3/uL (130-450); RED BLOOD COUNT 4.77 10^6/uL (4.20-5.40); WHITE BLOOD COUNT 7.9 x10^3/uL (4.8-10.8)
[2022-02-04 15:48] LABS: ALBUMIN 4.1 g/dL (3.2-5.5); ALBUMIN/GLOBULIN RATIO 1.2 (1.0-2.2); ALKALINE PHOSPHATASE 65 IU/L (42-121); ALT ALANINE AMINOTRANSFERASE 19 IU/L (10-60); AST ASPARTATE AMINOTRANSFERASE 20 IU/L (10-42); BILIRUBIN,TOTAL 0.7 mg/dL (0.2-1.0); BUN - BLOOD UREA NITROGEN 15 mg/dL (6-20); CALCIUM 9.8 mg/dL (8.5-10.3); CARBON DIOXIDE - CO2 28 mmol/L (21-32); CHLORIDE 106 mmol/L (101-111); CHOL/HDL RATIO 3.5 (<4.4); CHOLESTEROL 225 mg/dL; CREATININE 0.7 mg/dL (0.4-1.0); GFR - MDRD 84 (>89); GLUCOSE 101 mg/dL (70-100); HDL CHOLESTEROL 65 mg/dL; LDL CHOLESTEROL,CALCULATED 140 mg/dL; LDL/HDL RATIO 2.2 (<4.4); POTASSIUM 3.9 mmol/L (3.5-5.0); SODIUM 140 mmol/L (135-145); TOTAL PROTEIN 7.5 g/dL (6.7-8.2); TRIGLYCERIDES 98 mg/dL; VLDL CHOLESTEROL 20 mg/dL
[2022-02-04 15:49] LABS: THYROID STIMULATING HORMONE 1.97 uIU/mL (0.34-5.60)
[2022-02-04 15:57] LABS: FERRITIN 193.2 ng/mL (11.0-306.8)
[2022-02-04 18:41] LABS: ESTIMATED AVERAGE GLUCOSE 108 mg/dL (70-100); HEMOGLOBIN A1c% 5.4 % (4.27-6.07)
== END 2022-02-04 07:20 | disposition home or self-care (01) ==
LOC: LAB.S 07:19
PROVIDERS: ATTEND Family Medicine
DX: Z01.84 Encounter for antibody response examination (principal); I10 Essential (primary) hypertension; G57.93 Unspecified mononeuropathy of bilateral lower limbs; E04.1 Nontoxic single thyroid nodule; J44.9 Chronic obstructive pulmonary disease, unspecified; Z13.1 Encounter for screening for diabetes mellitus; Z13.29 Encounter for screening for other suspected endocrine disorder; Z13.220 Encounter for screening for lipoid disorders
CPT/HCPCS: 36415; 80053; 80061; 82607; 82728; 82746; 83036; 83721; 84443; 85025; 86787